=== PATIENT | male | born 1935 | race Caucasian/White ===

== ENCOUNTER → 2016-06-03 | Outpatient (CLI) | payer OTHER ==
[~2016-06-03] MED LIST: BACTROBAN2% TP
[2016-06-03 14:07] LABS: INTERNATIONAL NORM RATIO 1.6 (2.0-3.5); PROTHROMBIN TIME 17.4 SECONDS (9.0-12.4)
== END | disposition home or self-care (01) ==
LOC: LAB 13:15
PROVIDERS: Internal Medicine
DX: D68.9 Coagulation defect, unspecified (principal)

== ENCOUNTER → 2016-06-18 | Outpatient (CLI) | payer OTHER ==
[2016-06-18 15:53] LABS: INTERNATIONAL NORM RATIO 1.8 (2.0-3.5); PROTHROMBIN TIME 19.1 SECONDS (9.0-12.4)
== END | disposition home or self-care (01) ==
LOC: LAB 13:23
PROVIDERS: Internal Medicine
DX: D68.9 Coagulation defect, unspecified (principal)

== ENCOUNTER → 2016-09-04 | Outpatient (CLI) | payer OTHER ==
[2016-09-04 13:04] LABS: INTERNATIONAL NORM RATIO 1.9 (2.0-3.5); PROTHROMBIN TIME 20.8 SECONDS (9.0-12.4)
== END | disposition home or self-care (01) ==
LOC: LAB 11:08
PROVIDERS: Internal Medicine
DX: D68.9 Coagulation defect, unspecified (principal)

== ENCOUNTER → 2016-09-30 | Outpatient (CLI) | payer OTHER ==
[2016-09-30 14:12] LABS: INTERNATIONAL NORM RATIO 1.9 (2.0-3.5); PROTHROMBIN TIME 20.8 SECONDS (9.0-12.4)
== END | disposition home or self-care (01) ==
LOC: LAB 13:20
PROVIDERS: Internal Medicine
DX: D68.9 Coagulation defect, unspecified (principal)

== ENCOUNTER → 2016-12-04 | Outpatient (CLI) | payer OTHER ==
[2016-12-04 13:09] LABS: INTERNATIONAL NORM RATIO 2.3 (2.0-3.5); PROTHROMBIN TIME 25.4 SECONDS (9.0-12.4)
== END | disposition home or self-care (01) ==
LOC: LAB 11:40
PROVIDERS: Internal Medicine
DX: D68.9 Coagulation defect, unspecified (principal)

== ENCOUNTER → 2016-12-31 | Outpatient (CLI) | payer OTHER ==
[2016-12-31 12:13] LABS: INTERNATIONAL NORM RATIO 2.1 (2.0-3.5); PROTHROMBIN TIME 22.9 SECONDS (9.0-12.4)
== END | disposition home or self-care (01) ==
LOC: LAB 10:50
PROVIDERS: Internal Medicine
DX: D68.9 Coagulation defect, unspecified (principal)

== ENCOUNTER → 2017-02-04 | Outpatient (CLI) | payer OTHER ==
[2017-02-04 15:25] LABS: INTERNATIONAL NORM RATIO 2.4 (2.0-3.5)
== END | disposition home or self-care (01) ==
LOC: LAB 13:45
PROVIDERS: Internal Medicine
DX: D68.9 Coagulation defect, unspecified (principal)

== ENCOUNTER → 2017-03-04 | Outpatient (CLI) | payer OTHER ==
[2017-03-04 11:40] LABS: INTERNATIONAL NORM RATIO 2.4 (2.0-3.5)
== END | disposition home or self-care (01) ==
LOC: LAB 11:13
PROVIDERS: Internal Medicine
DX: D68.9 Coagulation defect, unspecified (principal)

== ENCOUNTER → 2017-04-02 | Outpatient (CLI) | payer OTHER ==
[2017-04-02 10:59] LABS: INTERNATIONAL NORM RATIO 2.5 (2.0-3.5)
== END | disposition home or self-care (01) ==
LOC: LAB 10:27
PROVIDERS: Internal Medicine
DX: D68.9 Coagulation defect, unspecified (principal)

== ENCOUNTER → 2017-05-05 | Outpatient (CLI) | payer OTHER ==
[2017-05-05 14:25] LABS: INTERNATIONAL NORM RATIO 2.8 (2.0-3.5)
== END | disposition home or self-care (01) ==
LOC: LAB 13:40
PROVIDERS: Internal Medicine
DX: I82.409 Acute embolism and thrombosis of unspecified deep veins of unspecified lower extremity (principal)

== ENCOUNTER → 2017-06-04 | Outpatient (CLI) | payer OTHER ==
[2017-06-04 11:43] LABS: INTERNATIONAL NORM RATIO 2.5 (2.0-3.5)
== END | disposition home or self-care (01) ==
LOC: LAB 10:53
PROVIDERS: Internal Medicine
DX: I82.409 Acute embolism and thrombosis of unspecified deep veins of unspecified lower extremity (principal)

== ENCOUNTER → 2017-07-22 | Outpatient (CLI) | payer OTHER ==
[2017-07-22 11:48] LABS: INTERNATIONAL NORM RATIO 2.4 (2.0-3.5)
== END | disposition home or self-care (01) ==
LOC: LAB 10:26
PROVIDERS: Registered Nurse Flight
DX: J44.9 Chronic obstructive pulmonary disease, unspecified (principal); Z92.29 Personal history of other drug therapy; Z95.5 Presence of coronary angioplasty implant and graft; Z87.891 Personal history of nicotine dependence; Z79.01 Long term (current) use of anticoagulants

== ENCOUNTER → 2017-08-18 | Outpatient (CLI) | payer OTHER | END | disposition home or self-care (01) | LOC: LAB 13:34 | PROVIDERS: Registered Nurse Flight | DX: Z51.81 Encounter for therapeutic drug level monitoring (principal); Z79.01 Long term (current) use of anticoagulants; Z92.29 Personal history of other drug therapy ==

== ENCOUNTER → 2017-09-04 | Outpatient (CLI) | payer OTHER ==
[2017-09-04 14:45] LABS: INTERNATIONAL NORM RATIO 3.5 (2.0-3.5)
== END | disposition home or self-care (01) ==
LOC: LAB 13:35
PROVIDERS: Registered Nurse Flight
DX: Z51.81 Encounter for therapeutic drug level monitoring (principal); Z79.01 Long term (current) use of anticoagulants

== ENCOUNTER → 2017-10-07 | Outpatient (CLI) | payer OTHER ==
[2017-10-07 12:10] LABS: INTERNATIONAL NORM RATIO 3.9 (2.0-3.5)
== END | disposition home or self-care (01) ==
LOC: LAB 11:07
PROVIDERS: Registered Nurse Flight
DX: Z51.81 Encounter for therapeutic drug level monitoring (principal); Z79.01 Long term (current) use of anticoagulants

== ENCOUNTER → 2017-11-11 | Outpatient (CLI) | payer OTHER ==
[2017-11-11 14:09] LABS: INTERNATIONAL NORM RATIO 2.8 (2.0-3.5)
== END | disposition home or self-care (01) ==
LOC: LAB 13:03
PROVIDERS: Registered Nurse Flight
DX: Z51.81 Encounter for therapeutic drug level monitoring (principal); Z79.01 Long term (current) use of anticoagulants

== ENCOUNTER → 2017-12-08 | Outpatient (CLI) | payer OTHER | END | disposition home or self-care (01) | LOC: LAB 15:38 | PROVIDERS: Registered Nurse Flight | DX: Z51.81 Encounter for therapeutic drug level monitoring (principal); Z79.01 Long term (current) use of anticoagulants ==

== ENCOUNTER → 2018-02-04 | Outpatient (CLI) | payer OTHER | END | disposition home or self-care (01) | LOC: LAB 09:20 | PROVIDERS: Registered Nurse Flight | DX: Z51.81 Encounter for therapeutic drug level monitoring (principal); Z79.01 Long term (current) use of anticoagulants ==

== ENCOUNTER → 2018-03-05 | Outpatient (CLI) | payer OTHER ==
[2018-03-05 14:34] LABS: INTERNATIONAL NORM RATIO 3.2 (2.0-3.5)
== END | disposition home or self-care (01) ==
LOC: LAB 13:22
PROVIDERS: Registered Nurse Flight
DX: Z51.81 Encounter for therapeutic drug level monitoring (principal); Z79.01 Long term (current) use of anticoagulants

== ENCOUNTER → 2018-04-06 | Outpatient (CLI) | payer OTHER ==
[2018-04-06 14:59] LABS: INTERNATIONAL NORM RATIO 3.8 (2.0-3.5)
== END | disposition home or self-care (01) ==
LOC: LAB 13:38
PROVIDERS: Registered Nurse Flight
DX: Z79.01 Long term (current) use of anticoagulants (principal)

== ENCOUNTER → 2018-05-07 | Outpatient (CLI) | payer OTHER ==
[2018-05-07 12:24] LABS: INTERNATIONAL NORM RATIO 2.8 (2.0-3.5)
== END | disposition home or self-care (01) ==
LOC: LAB 11:29
PROVIDERS: Registered Nurse Flight
DX: Z79.01 Long term (current) use of anticoagulants (principal)

== ENCOUNTER → 2018-06-03 | Outpatient (CLI) | payer OTHER ==
[2018-06-03 14:30] LABS: INTERNATIONAL NORM RATIO 2.7 (2.0-3.5)
== END | disposition home or self-care (01) ==
LOC: LAB 13:27
PROVIDERS: Registered Nurse Flight
DX: Z79.01 Long term (current) use of anticoagulants (principal)

== ENCOUNTER → 2018-07-06 | Outpatient (CLI) | payer OTHER ==
[2018-07-06 12:21] LABS: INTERNATIONAL NORM RATIO 2.6 (2.0-3.5)
== END | disposition home or self-care (01) ==
LOC: LAB 11:08
PROVIDERS: Registered Nurse Flight
DX: Z79.01 Long term (current) use of anticoagulants (principal)

== ENCOUNTER → 2018-10-07 | Outpatient (CLI) | payer OTHER ==
[2018-10-07 14:14] LABS: INTERNATIONAL NORM RATIO 3.4 (2.0-3.5)
== END | disposition home or self-care (01) ==
LOC: LAB 13:27
PROVIDERS: Registered Nurse Flight
DX: I48.91 Unspecified atrial fibrillation (principal)

== ENCOUNTER → 2018-11-02 | Outpatient (CLI) | payer OTHER ==
[2018-11-02 11:57] LABS: INTERNATIONAL NORM RATIO 2.4 (2.0-3.5)
== END | disposition home or self-care (01) ==
LOC: LAB 10:47
PROVIDERS: Registered Nurse Flight
DX: I48.91 Unspecified atrial fibrillation (principal)

== ENCOUNTER → 2018-11-30 | Outpatient (CLI) | payer OTHER | END | disposition home or self-care (01) | LOC: LAB 13:45 | PROVIDERS: Registered Nurse Flight | DX: I48.91 Unspecified atrial fibrillation (principal) ==

== ENCOUNTER → 2019-01-04 | Outpatient (CLI) | payer OTHER ==
[2019-01-04 12:01] LABS: INTERNATIONAL NORM RATIO 2.9 (2.0-3.5)
== END | disposition home or self-care (01) ==
LOC: LAB 10:35 → EDSTATUS 01-05 15:10 → LAB 01-05 15:12
PROVIDERS: Registered Nurse Flight
DX: I48.91 Unspecified atrial fibrillation (principal)

== ENCOUNTER → 2019-02-03 | Outpatient (CLI) | payer OTHER ==
[2019-02-03 14:50] LABS: INTERNATIONAL NORM RATIO 2.5 (2.0-3.5)
== END | disposition home or self-care (01) ==
LOC: LAB 13:47
PROVIDERS: Registered Nurse Flight
DX: I48.91 Unspecified atrial fibrillation (principal)

== ENCOUNTER → 2019-03-02 | Outpatient (CLI) | payer OTHER ==
[2019-03-02 14:25] LABS: INTERNATIONAL NORM RATIO 3.3 (2.0-3.5)
== END | disposition home or self-care (01) ==
LOC: LAB 13:34
PROVIDERS: Registered Nurse Flight
DX: I48.91 Unspecified atrial fibrillation (principal)

== ENCOUNTER → 2019-04-05 | Outpatient (CLI) | payer OTHER ==
[2019-04-05 15:12] LABS: INTERNATIONAL NORM RATIO 2.6 (2.0-3.5)
== END | disposition home or self-care (01) ==
LOC: LAB 14:40
PROVIDERS: Registered Nurse Flight
DX: I48.91 Unspecified atrial fibrillation (principal)

== ENCOUNTER → 2019-05-03 | Outpatient (CLI) | payer OTHER ==
[2019-05-03 12:37] LABS: INTERNATIONAL NORM RATIO 2.4 (2.0-3.5)
== END | disposition home or self-care (01) ==
LOC: LAB 11:15
PROVIDERS: Registered Nurse Flight
DX: I48.91 Unspecified atrial fibrillation (principal)

== ENCOUNTER → 2019-05-17 | Outpatient (CLI) | payer OTHER | END | disposition home or self-care (01) | LOC: RAD 13:04 | DX: J43.8 Other emphysema (principal) ==

== ENCOUNTER → 2019-06-08 | Outpatient (CLI) | payer OTHER ==
[2019-06-08 13:58] LABS: INTERNATIONAL NORM RATIO 2.1 (2.0-3.5)
== END | disposition home or self-care (01) ==
LOC: LAB 13:19
PROVIDERS: Registered Nurse Flight
DX: I48.91 Unspecified atrial fibrillation (principal)

== ENCOUNTER → 2019-07-05 | Outpatient (CLI) | payer OTHER | END | disposition home or self-care (01) | LOC: LAB 14:08 | PROVIDERS: Registered Nurse Flight | DX: I48.91 Unspecified atrial fibrillation (principal) ==

== ENCOUNTER → 2019-08-03 | Outpatient (CLI) | payer OTHER ==
[2019-08-03 15:19] LABS: INTERNATIONAL NORM RATIO 2.3 (2.0-3.5)
== END | disposition home or self-care (01) ==
LOC: LAB 14:26
PROVIDERS: Registered Nurse Flight
DX: Z79.01 Long term (current) use of anticoagulants (principal); Z86.711 Personal history of pulmonary embolism; Z92.29 Personal history of other drug therapy

== ENCOUNTER → 2019-09-08 | Outpatient (CLI) | payer OTHER ==
[2019-09-08 14:11] LABS: INTERNATIONAL NORM RATIO 2.2 (2.0-3.5)
== END | disposition home or self-care (01) ==
LOC: LAB 13:34
PROVIDERS: Registered Nurse Flight
DX: I48.91 Unspecified atrial fibrillation (principal); Z86.711 Personal history of pulmonary embolism; Z92.29 Personal history of other drug therapy

== ENCOUNTER → 2019-10-04 | Outpatient (CLI) | payer OTHER ==
[2019-10-04 14:10] LABS: INTERNATIONAL NORM RATIO 1.8 (2.0-3.5)
== END | disposition home or self-care (01) ==
LOC: LAB 13:13
PROVIDERS: Registered Nurse Flight
DX: I48.91 Unspecified atrial fibrillation (principal); Z92.29 Personal history of other drug therapy; Z86.11 Personal history of tuberculosis

== ENCOUNTER → 2019-11-01 | Outpatient (CLI) | payer OTHER ==
[2019-11-01 14:34] LABS: INTERNATIONAL NORM RATIO 2.3 (2.0-3.5)
== END | disposition home or self-care (01) ==
LOC: LAB 14:08
PROVIDERS: Registered Nurse Flight
DX: I48.91 Unspecified atrial fibrillation (principal)

== ENCOUNTER → 2019-12-03 | Outpatient (CLI) | payer OTHER ==
[2019-12-03 14:03] LABS: INTERNATIONAL NORM RATIO 2.3 (2.0-3.5)
== END | disposition home or self-care (01) ==
LOC: LAB 13:17
PROVIDERS: Registered Nurse Flight
DX: Z51.81 Encounter for therapeutic drug level monitoring (principal); Z92.29 Personal history of other drug therapy; Z86.711 Personal history of pulmonary embolism

== ENCOUNTER → 2020-01-03 | Outpatient (CLI) | payer OTHER ==
[2020-01-03 12:15] LABS: INTERNATIONAL NORM RATIO 2.5 (2.0-3.5)
== END | disposition home or self-care (01) ==
LOC: LAB 11:05
PROVIDERS: Registered Nurse Flight
DX: I48.91 Unspecified atrial fibrillation (principal); Z92.29 Personal history of other drug therapy; Z86.711 Personal history of pulmonary embolism

== ENCOUNTER → 2020-02-08 | Outpatient (CLI) | payer OTHER ==
[2020-02-08 14:42] LABS: INTERNATIONAL NORM RATIO 2.5 (2.0-3.5)
== END | disposition home or self-care (01) ==
LOC: LAB 13:33
PROVIDERS: ATTEND Internal Medicine
DX: Z79.01 Long term (current) use of anticoagulants (principal); Z86.711 Personal history of pulmonary embolism

== ENCOUNTER → 2020-03-03 | Outpatient (CLI) | payer OTHER ==
[2020-03-03 14:23] LABS: INTERNATIONAL NORM RATIO 2.2 (2.0-3.5)
== END | disposition home or self-care (01) ==
LOC: LAB 13:39
PROVIDERS: ATTEND Internal Medicine
DX: J44.9 Chronic obstructive pulmonary disease, unspecified (principal); Z79.01 Long term (current) use of anticoagulants; Z92.29 Personal history of other drug therapy

== ENCOUNTER → 2020-04-05 | Outpatient (CLI) | payer OTHER ==
[2020-04-05 15:01] LABS: INTERNATIONAL NORM RATIO 2.9 (2.0-3.5)
== END | disposition home or self-care (01) ==
LOC: LAB 13:37
PROVIDERS: ATTEND Registered Nurse Flight
DX: I48.91 Unspecified atrial fibrillation (principal)

== ENCOUNTER → 2020-05-03 | Outpatient (CLI) | payer OTHER ==
[2020-05-03 15:00] LABS: INTERNATIONAL NORM RATIO 3.5 (2.0-3.5)
== END | disposition home or self-care (01) ==
LOC: LAB 14:22
PROVIDERS: ATTEND Internal Medicine
DX: Z92.29 Personal history of other drug therapy (principal); Z86.711 Personal history of pulmonary embolism

== ENCOUNTER → 2020-08-20 | Outpatient (CLI) | payer OTHER ==
[2020-08-20 13:24] LABS: INTERNATIONAL NORM RATIO 1.5 (2.0-3.5)
== END | disposition home or self-care (01) ==
LOC: LAB 12:41
PROVIDERS: ATTEND Nurse Practitioner Primary Care
DX: I82.409 Acute embolism and thrombosis of unspecified deep veins of unspecified lower extremity (principal); Z86.718 Personal history of other venous thrombosis and embolism; Z79.01 Long term (current) use of anticoagulants

== ENCOUNTER → 2020-10-12 | Outpatient (CLI) | payer OTHER | END | disposition home or self-care (01) | LOC: US 08:23 | PROVIDERS: ATTEND Nurse Practitioner Primary Care | DX: I65.23 Occlusion and stenosis of bilateral carotid arteries (principal) ==

== ENCOUNTER 2022-03-02 17:34 | Emergency (ER) | payer OTHER ==
[~2022-03-02] VITALS: Wt 77.6 kg
[2022-03-02 18:04] VITALS: BP 113/64
== END 2022-03-02 20:43 ==
LOC: ED 17:34
DX: L03.114 Cellulitis of left upper limb (principal); Z98.890 Other specified postprocedural states

== ENCOUNTER 2022-04-22 06:24 | Emergency (ER) | payer OTHER ==
[~2022-04-22] VITALS: Ht 170.1 cm; Wt 68.5 kg
[2022-04-22] MEDS ORDERED: COMBIVENT RESPIM4 GM INH (06:37)
[2022-04-22] MEDS ORDERED: DILTIAZEM 24HR180 MG PO (06:37)
[2022-04-22] MEDS ORDERED: 8 HOUR650 MG PO (06:38)
[2022-04-22] MEDS ORDERED: ELIQUIS2.5 M1 PO (06:39)
[2022-04-22] MEDS ORDERED: FLUOXETINE HYDR20 M1 PO (06:39)
[2022-04-22] MEDS ORDERED: DULCOLAX STOOL100 M1 PO (06:39)
[2022-04-22] MEDS ORDERED: FUROSEMIDE40 MG PO (06:40)
[2022-04-22] MEDS ORDERED: [UNRECOGNIZED DRUG - OTHER] INH (06:40)
[2022-04-22] MEDS ORDERED: Ipratropium Brom3 ML INH (06:41)
[2022-04-22] MEDS ORDERED: MEGESTROL400 MG/10 PO (06:42)
[2022-04-22] MEDS ORDERED: MELATONIN5 M1 PO (06:43)
[2022-04-22] MEDS ORDERED: OMEPRAZOLE MAGN20 MG PO (06:43)
[2022-04-22] MEDS ORDERED: POTASSIUM CHLO20 ME4 PO (06:44)
[2022-04-22] MEDS ORDERED: ONDANSETRON HYDR4 MG PO (06:44)
[2022-04-22] MEDS ORDERED: SILDENAFIL20 M1 PO (06:45)
[2022-04-22] MEDS ORDERED: SALINE NASAL SP88 ML INH (06:46)
[2022-04-22 06:54] LABS: BASO # 0.1 10*3/uL (0.0-0.1); BASO % 0.5 % (0.0-1.0); EOS # 0.1 10*3/uL (0.0-0.4); EOS % 1.3 % (1.0-4.0); HEMATOCRIT 37.1 % (42.0-52.0); LYMPH # 1.2 10*3/uL (1.3-4.4); LYMPH % 11.2 % (27.0-41.0); MEAN CELL VOLUME 90.7 fl (80.0-94.0); MEAN CORPUSCULAR HGB 28.1 pg (27.0-31.0); MEAN PLATELET VOLUME 8.7 fl (9.6-12.3); MONO # 0.9 10*3/uL (0.1-1.0); MONO % 8.7 % (3.0-9.0); NEUT # 8.3 10*3/uL (2.3-7.9); NUCLEATED RED BLOOD CELL 0.2 % (0.0-0.0); PLATELET COUNT AUTOMATED 644 10*3/uL (130-400); RED BLOOD COUNT 4.09 10*6/uL (4.50-5.90); RED CELL DISTRI WIDTH 16.1 % (0-14.5); WHITE BLOOD COUNT 10.8 10*3/uL (4.8-10.8)
[2022-04-22 07:22] LABS: ALKALINE PHOSPHATASE 84 U/L (45-117); BUN 56 mg/dl (7-24); CHLORIDE 101 mmol/L (98-107); CREATININE 1.31 mg/dL (0.70-1.30); POTASSIUM 5.4 mmol/L (3.5-5.1); SGPT/ALT 20 U/L (12-78); SODIUM 136 mmol/L (136-145); TOTAL PROTEIN 7.2 gm/dL (6.4-8.2)
[2022-04-22 07:30] VITALS: BP 122/80
== END 2022-04-22 09:46 | disposition home or self-care (01) ==
LOC: ED 06:24
PROVIDERS: Internal Medicine
DX: E87.5 Hyperkalemia (principal); R06.02 Shortness of breath; Z79.899 Other long term (current) drug therapy; Z98.890 Other specified postprocedural states